=== PATIENT | male | born 1970 ===

== ENCOUNTER 2025-10-13 07:38 | Day surgery (SDC) | payer OTHER ==
[~2025-10-13] VITALS: Ht 175.3 cm; Wt 103.9 kg
[2025-10-13] MEDS ORDERED: CeFAZolin Sodium 2,000 MG VIAL ONE (07:58)
[2025-10-13] MEDS ORDERED: ZESTRIL40 M1 PO (08:18)
[2025-10-13] MEDS ORDERED: CYCL10 PO (08:19)
[2025-10-13] MEDS ORDERED: ASPI81CH PO (08:20)
[2025-10-13] MEDS ORDERED: SILD50TA PO (08:20)
[2025-10-13] MEDS ORDERED: ATOR40TA PO (08:20)
[2025-10-13] MEDS ORDERED: CARV6.25 PO (08:21)
[2025-10-13] MEDS ORDERED: HYDCHL25 PO (08:21)
[2025-10-13] MEDS ORDERED: AMLO10 PO (08:22)
[2025-10-13] MEDS ORDERED: Rocuronium Bromide 10 MG/ML 5ML Injection IV ONE ×2 (08:23→10:13)
[2025-10-13] MEDS ORDERED: Dexamethasone Sod Phos 10 MG/ML 1ML VIAL ONE ×2 (08:23→08:24)
[2025-10-13] MEDS ORDERED: Ondansetron HCl 2 MG / ML 2ML Vial ONE (08:23)
[2025-10-13] MEDS ORDERED: FentaNYL Citrate 50 MCG/ML 2 ML Injection ONE ×2 (08:27→12:03)
[2025-10-13] MEDS ORDERED: Midazolam HCl 1MG / ML 2ML Vial ONE (08:28)
[2025-10-13] MEDS ORDERED: Ropivacaine 0.5% HCL/PF 5 MG/ML 30ML Vial ONE (08:33)
--- NOTE | 2025-10-13 08:33 | NUR ---
10/13/25 0833 Zakia Amin RN RDS INPUTED PREOP INFORMATION [phone]. END NOTE RDS..
[2025-10-13] MEDS ORDERED: Sugammadex Sodium 200 MG/2ML SDV (100 MG/ML) ONE ×2 (11:03→12:07)
--- NOTE | 2025-10-13 14:58 | NUR ---
10/13/25 [id number] Alaina Pinto 1421 PT D/CD HOME STABLE CONDITION, REVIEWED ALL INSTRUCTIONS WITH PT/. INSTRUCTED PT TO FOLLOW UP PER INSTRUCTED BY JAMES ACEVES WITH DR. NORRIS IF RIGHT EYE CONTINUES TO BOTHER, GETS MORE IRRIATED, DRAINAGE OR ANY OTHER CONCERNS, PT VERBALZIED UNDERSTANDING.
== END 2025-10-13 14:25 | disposition home or self-care (01) ==
LOC: ORSCSDS 07:38
PROVIDERS: Orthopaedic Surgery
PROC: 0RBK4ZZ Excision of Left Shoulder Joint, Percutaneous Endoscopic Approach (ICD-10-PCS; principal; 2025-10-13 09:20)
PROC: 0LM24ZZ Reattachment of Left Shoulder Tendon, Percutaneous Endoscopic Approach (ICD-10-PCS; principal; 2025-10-13 09:20)
DX: S46.812A Strain of other muscles, fascia and tendons at shoulder and upper arm level, left arm, initial encounter (principal); X50.1XXA Overexertion from prolonged static or awkward postures, initial encounter; M19.012 Primary osteoarthritis, left shoulder; M75.102 Unspecified rotator cuff tear or rupture of left shoulder, not specified as traumatic; I10 Essential (primary) hypertension; I25.2 Old myocardial infarction; F17.210 Nicotine dependence, cigarettes, uncomplicated; E66.9 Obesity, unspecified; Z68.33 Body mass index [BMI] 33.0-33.9, adult; Z79.899 Other long term (current) drug therapy; Z79.82 Long term (current) use of aspirin
CPT/HCPCS: C1713; J0166; J0690; J1100; J2250; J2405; J2704; J2795; J3010; J7120